=== PATIENT | male | born 1965 | race Caucasian/White ===

== ENCOUNTER 2019-06-27 03:06 | Inpatient (IN) | payer MEDICAID ==
[~2019-06-27] VITALS: Ht 175.3 cm; Wt 116.4 kg
[~2019-06-27 03:06] MED LIST: ASPI-817 PO; CARV25TA79 PO; DIGO250T PO; FURO40SO PO; METF500T24 PO; POTA20TA15 PO; RIVA20TA5 PO
[2019-06-27] MEDS ORDERED: ACETAMINOPHEN 325 MG TAB PO PRN (06:00)
[2019-06-27] MEDS ORDERED: ONDANSETRON 4 MG INJ IV PRN ×2 (06:00→08:00)
[2019-06-27] MEDS ORDERED: FUROSEMIDE 40 MG INJ IV ONE (06:00)
[2019-06-27] MEDS ORDERED: hydrALAzine 20 MG INJ IV STA (07:06)
[2019-06-27] MEDS ORDERED: hydrALAzine 20 MG INJ ONE (07:11)
[2019-06-27] MEDS ORDERED: DIGOXIN 0.25 MG TAB PO SCH (08:00)
[2019-06-27] MEDS ORDERED: NACL 0.9% 3 ML SYG IV SCH (08:00)
[2019-06-27] MEDS ORDERED: NITROGLYCERIN (SL) 0.4 MG TAB SL PRN (08:00)
[2019-06-27] MEDS: DILTIAZEM-D5W 125MG/125ML DRIP 125 ML IV SCH ×4 (08:23→23:04)
[2019-06-27] MEDS ORDERED: ENOXAPARIN 40 MG/0.4 ML SYG SC SCH (09:00)
[2019-06-27] MEDS ORDERED: FUROSEMIDE 40 MG TAB PO SCH (09:00)
[2019-06-27] MEDS ORDERED: ASPIRIN (EC) 81 MG TAB PO SCH (09:00)
[2019-06-27] MEDS ORDERED: POTASSIUM CHLORIDE (SR) 20 MEQ TAB PO STA (18:18)
[2019-06-27] MEDS ORDERED: FUROSEMIDE 20 MG INJ IV SCH (18:30)
[2019-06-27] MEDS ORDERED: DIGOXIN 500 MCG INJ IV ONE (18:30)
[2019-06-27 19:10] VITALS: BP 122/89; PULSE 110; RESP 18
[2019-06-27 19:30] VITALS: Ht 175.3 cm; Wt 116.4 kg
[2019-06-27] MEDS ORDERED: DIGOXIN 500 MCG INJ IV SCH (19:35)
[2019-06-27] MEDS: RIVAROXABAN 20 MG TABLET PO SCH (19:57)
[2019-06-27] MEDS: FUROSEMIDE 40 MG INJ IV SCH (20:19)
[2019-06-28] VITALS: BP_SYST 104; BP_SYST 110; BP_DIAS 70; BP_DIAS 81; PULSE 65; PULSE 94; RESP 19
[2019-06-28] MEDS ORDERED: DIGOXIN 500 MCG INJ IV SCH (00:30)
[2019-06-28] MEDS: DIGOXIN 500 MCG INJ IV SCH ×2 (02:05→08:59)
[2019-06-28 03:59] VITALS: BP 123/76; PULSE 95; RESP 21
[2019-06-28] MEDS: ACETAMINOPHEN 325 MG TAB PO PRN ×2 (04:37→23:57)
[2019-06-28] MEDS: FUROSEMIDE 40 MG INJ IV SCH ×2 (05:55→17:04)
[2019-06-28] MEDS: POTASSIUM CHLORIDE (SR) 20 MEQ TAB PO SCH ×2 (07:00→11:34)
[2019-06-28 07:22] VITALS: BP 137/88; PULSE 71; RESP 19
[2019-06-28 11:20] VITALS: BP 120/88; PULSE 83; RESP 19
[2019-06-28 15:07] VITALS: BP 130/96; PULSE 72
[2019-06-28] MEDS: RIVAROXABAN 20 MG TABLET PO SCH (17:04)
[2019-06-28] MEDS ORDERED: DIGOXIN 500 MCG INJ IV ONE (18:30)
[2019-06-28 19:49] VITALS: BP_SYST 130; BP_SYST 166; BP_DIAS 100; BP_DIAS 96; PULSE 113
[2019-06-29] VITALS (8 sets, daily range): BP systolic 115–176; BP diastolic 76–115; PULSE 83–115; RESP 18–19
[2019-06-29] MEDS: FUROSEMIDE 40 MG INJ IV SCH (06:03)
[2019-06-29] MEDS ORDERED: LABETALOL HCL 20MG INJ IV ONE (06:30)
[2019-06-29] MEDS ORDERED: POTASSIUM CHLORIDE (SR) 20 MEQ TAB PO SCH (09:00)
[2019-06-29] MEDS ORDERED: DIGOXIN 0.25 MG TAB PO SCH (13:00)
== END 2019-06-29 14:12 | disposition home or self-care (01) | DRG 308 ==
LOC: E/R 03:06 → EDBD 03:06 → 6WM 05:39
PROVIDERS: ADMIT Internal Medicine; ATTEND Internal Medicine
DX: I48.0 Paroxysmal atrial fibrillation (principal); I50.23 Acute on chronic systolic (congestive) heart failure; I42.6 Alcoholic cardiomyopathy; E66.01 Morbid (severe) obesity due to excess calories; M54.9 Dorsalgia, unspecified; E11.9 Type 2 diabetes mellitus without complications; Z68.38 Body mass index [BMI] 38.0-38.9, adult; Z91.14 Patient's other noncompliance with medication regimen; Z79.82 Long term (current) use of aspirin; Z79.01 Long term (current) use of anticoagulants; Z79.84 Long term (current) use of oral hypoglycemic drugs
CPT/HCPCS: 36415; 36600; 71045; 80053; 80061; 80162; 80307; 82550; 82553; 82803; 83036; 83735; 83880; 84443; 84484; 85025; 93005; 93306; 93971; 94660; J0360; J1940